=== PATIENT | female | born 1985 | race Two or more races ===

== ENCOUNTER 2024-12-21 01:37 | Emergency (ER) | payer OTHER ==
[2024-12-21 01:51] VITALS: TEMP 97.8; BMI 26.0
[2024-12-21] MEDS ORDERED: ACETAMINOPHEN 500 MG TABLET (FP) ONE (02:10)
[2024-12-21 02:12] VITALS: BP 143/90; PULSE 66; RESP 19
[2024-12-21] MEDS: ACETAMINOPHEN 500 MG TABLET (FP) PO ONE (02:12)
== END 2024-12-21 02:33 | disposition home or self-care (01) ==
LOC: JER 01:37
DX: R03.0 Elevated blood-pressure reading, without diagnosis of hypertension (principal); R42 Dizziness and giddiness; R51.9 Headache, unspecified
CPT/HCPCS: 99283-25